=== PATIENT | female | born 1985 | race Caucasian/White ===

== ENCOUNTER 2018-04-01 10:23 | Emergency (ER) | payer MEDICAID ==
[~2018-04-01] VITALS: Ht 160 cm; Wt 67.1 kg
[2018-04-01 10:28] VITALS: Ht 160 cm; Wt 67.1 kg
[2018-04-01 12:30] VITALS: BP 117/67
== END 2018-04-01 12:30 | disposition home or self-care (01) ==
LOC: ED 10:23
DX: S61.216A Laceration without foreign body of right little finger without damage to nail, initial encounter (principal); Z88.1 Allergy status to other antibiotic agents; W26.8XXA Contact with other sharp object(s), not elsewhere classified, initial encounter; Y93.89 Activity, other specified; Y92.89 Other specified places as the place of occurrence of the external cause; Y99.8 Other external cause status

== ENCOUNTER 2018-04-04 18:38 | Emergency (ER) | payer MEDICAID ==
[~2018-04-04] VITALS: Ht 160 cm; Wt 66.7 kg
[2018-04-04 19:13] VITALS: Ht 160 cm; Wt 66.7 kg
[2018-04-04 22:13] VITALS: BP 126/75
== END 2018-04-04 22:13 | disposition home or self-care (01) ==
LOC: ED 18:38
DX: S61.216D Laceration without foreign body of right little finger without damage to nail, subsequent encounter (principal); X58.XXXD Exposure to other specified factors, subsequent encounter; Z88.1 Allergy status to other antibiotic agents

== ENCOUNTER 2018-04-08 12:33 | Emergency (ER) | payer MEDICAID ==
[~2018-04-08] VITALS: Ht 160 cm; Wt 67.1 kg
[2018-04-08 13:06] VITALS: BP 123/79; Ht 160 cm; Wt 67.1 kg
== END 2018-04-08 13:45 | disposition home or self-care (01) ==
LOC: ED 12:33
DX: S61.216D Laceration without foreign body of right little finger without damage to nail, subsequent encounter (principal); Z88.1 Allergy status to other antibiotic agents; X58.XXXD Exposure to other specified factors, subsequent encounter

== ENCOUNTER 2018-04-11 19:20 | Emergency (ER) | payer MEDICAID ==
[~2018-04-11] VITALS: Ht 152.4 cm; Wt 67.6 kg
[2018-04-11 19:24] VITALS: BP 124/71; Ht 152.4 cm; Wt 67.6 kg
== END 2018-04-11 21:46 | disposition home or self-care (01) ==
LOC: ED 19:20
DX: S61.216D Laceration without foreign body of right little finger without damage to nail, subsequent encounter (principal); Z88.1 Allergy status to other antibiotic agents; X58.XXXD Exposure to other specified factors, subsequent encounter